=== PATIENT | male | born 1950 | race Caucasian/White ===

== ENCOUNTER 2016-12-20 06:32 | Day surgery (SDC) | payer MEDICARE ==
[2016-12-19 10:10] LABS: HEMATOCRIT 46.4 % (42.0-54.0); MCH 30.4 pg (26.0-34.0); MCHC 34.5 g/dL (31.0-37.0); MCV 88.2 fL (80.0-100.0); MEAN PLATELET VOLUME 11.1 fL (7.4-10.4); RBC 5.26 10x6/uL (4.20-6.10); RDW 12.6 % (11.5-14.5); WBC 6.6 10x3/uL (4.8-10.8)
[~2016-12-20] VITALS: Ht 175.3 cm; Wt 85.7 kg
[~2016-12-20 06:32] MED LIST: ACCUPRIL10 MG PO; BACTRIM 400-801 TAB PO; BAYER CHEWABLE81 MG PO; CO Q-10100 MG PO; PRAVACHOL20 MG PO
[2016-12-20 06:41] VITALS: BP 125/69; Ht 175.3 cm; Wt 85.7 kg
--- NOTE | 2016-12-20 08:35 | NUR ---
ARMS TO SIDE AND ULTRASOUND USED, EBRTHA.
--- NOTE | 2016-12-20 10:59 | NUR ---
1025--IV DC'D. WILL SOLITARIO 1035--DISCHARGE INSTRUCTIONS GIVEN, PT VERBALIZES UNDERSTANDING. PT OFF UNIT VIA WC. WILL SOLITARIO
--- NOTE | 2016-12-21 14:28 | OP ---
PATIENT NAME: MICHEL VINES MEDICAL RECORD: [id number] :46 LOCATION:.[facility] ADMISSION DATE: SURGEON: ANTONY HINKLE MD DATE OF OPERATION: 12/20/2016 SURGEON: Dr. Antony Hinkle. ANESTHESIA: General anesthesia by Dr. Vargas. PREOPERATIVE DIAGNOSIS: Elevated PSA 6.48. FINDINGS: A 52 gram prostate. Two hypoechoic areas in the left mid region of the prostate. PROCEDURES: Transrectal ultrasound and prostate biopsy. SPECIMENS: Prostate biopsy cores. ESTIMATED BLOOD LOSS: None. CLINICAL HISTORY: This is a 66-year-old male, who has a steadily rising PSA. It is now up to 6.48. He does not have any family history of prostate cancer. He has relatively little in the way of voiding symptoms. There is some hesitancy and some nocturia times 2. On rectal examination, he has an enlarged prostate, but no nodules were palpated. Today, he comes to have a transrectal ultrasound and prostate biopsy. He has been taking Bactrim antibiotics for 2 days prior to this event. He has also taken an enema last night to clean out the rectum. We gave him Ancef and gentamicin today psychologist [employer] to the OR. DESCRIPTION OF PROCEDURE: The patient was given IV sedation initially. When we performed with transrectal ultrasound, the patient continued to be quite restless and Dr. Vargas converted him to general anesthesia. The prostatic length, depth and width were obtained and calculation of the prostate size was made by the standard ellipsoid calculation. The prostate shows two hypoechoic areas in the mid portion of the left lobe. We then divided the prostate into 6 sectors. There was the left apex, mid and base sectors as well as the right apex, mid and base sectors. From each sector, we obtained at least 3 tissue cores. In the left mid sector, I especially tried to target the hypoechoic zones. The patient tolerated the procedure quite well. The cores were sent to pathology in formalin. The patient was awakened and brought to recovery room. I will see him in followup in 1 week's time to review the pathology with him. TRANSINT:[id number] Voice Confirmation ID: [id number] DOCUMENT ID: [id number] ANTONY HINKLE MD at 1428 CC: [id number] DICTATION DATE: 06/22/17 0903 FREELANCE WRITER: 12/20/161954 [facility] 12/20/16 [facility] [address] [place] [address]
== END 2016-12-20 10:35 | disposition home or self-care (01) ==
LOC: D.OPS 06:32 → D.PAN 08:15 → D.OPS 08:15 → D.PAN 09:00 → D.OPS 09:00
PROVIDERS: Anesthesiology
DX: R97.20 Elevated prostate specific antigen [PSA] (principal); J44.9 Chronic obstructive pulmonary disease, unspecified; K21.9 Gastro-esophageal reflux disease without esophagitis; I10 Essential (primary) hypertension; Z01.812 Encounter for preprocedural laboratory examination